=== PATIENT | female | born 1945 | race Caucasian/White ===

== ENCOUNTER → 2020-09-11 | Outpatient (CLI) | payer MEDICARE, OTHER | LOC: M.RAD 10:09 | PROVIDERS: ATTEND Internal Medicine | DX: M25.561 Pain in right knee (principal); M25.562 Pain in left knee; G89.29 Other chronic pain ==

== ENCOUNTER → 2020-10-13 | Outpatient (CLI) | payer MEDICARE, OTHER | LOC: M.CT 10:48 | PROVIDERS: ATTEND Internal Medicine | DX: I67.82 Cerebral ischemia (principal); R51.9 Headache, unspecified; W19.XXXA Unspecified fall, initial encounter ==

== ENCOUNTER 2020-11-20 11:44 | Emergency (ER) | payer MEDICARE, OTHER ==
[~2020-11-20] VITALS: Ht 149.9 cm; Wt 73.5 kg
[2020-11-20] MEDS ORDERED: VENLAFAXINE HCL25 MG (12:13)
[2020-11-20] MEDS ORDERED: TOPROL XL25 MG PO (12:13)
[2020-11-20 12:15] LABS: ABSOLUTE BASOPHILS 0.1 thou/uL (0.0-0.2); ABSOLUTE EOSINOPHILS 0.3 thou/uL (0.0-0.7); ABSOLUTE LYMPHOCYTES 1.5 thou/uL (0.8-5.3); ABSOLUTE MONOCYTES 0.5 thou/uL (0.0-1.2); ABSOLUTE NEUTROPHILS 3.6 thou/uL (1.6-8.1); EOSINOPHILS 4.7 %; HEMATOCRIT 37.7 % (37.0-47.0); HEMOGLOBIN 13.2 gm/dL (12.0-15.0); LYMPHOCYTES 25.3 %; MCH 33.1 pg (26.0-34.0); MCHC 35.1 g/dL (28.0-37.0); MCV 94.4 fL (80.0-100.0); MONOCYTES 8.7 %; MPV 9.5 fl. (7.2-11.1); NUCLEATED RBCS 0 /100WBC; PLATELET COUNT* 224 thou/uL (150-400); POLYS 60.3 %; RBC 3.99 mil/uL (4.20-5.00); RDW-CV 12.9 % (10.5-14.5)
[2020-11-20 12:25] LABS: CALCIUM 10.6 mg/dL (8.5-10.1); CREATININE 0.8 mg/dL (0.6-1.3)
[2020-11-20 12:28] LABS: ALBUMIN 3.7 g/dL (3.4-5.0); MAGNESIUM 1.9 mg/dL (1.8-2.4); TOTAL BILIRUBIN 0.4 mg/dL (<0.1-1.0); TOTAL PROTEIN 6.5 g/dL (6.4-8.2)
--- NOTE | 2020-11-20 14:15 | EKG ---
[place] [address] ELECTROCARDIOGRAM REPORT Name: GEORGE MENDIOLA Room: [facility]#: [id number] Admission: 11/20/20 Attend Phys: Discharge: Date of : 49 Date of Service: 11/20/20 1155 Report #: [id number] THIS REPORT FOR: //name// [facility] ED Test Date: 2020-11-20 Test Time: 11:55:06 Pat Name: GEORGE CANSECO Department: Room: Gender: F Recycling Sorter: LESLIE : 1945 Requested By: Ranulfo Lopez Order Number: [id number] MD: Tejas Balderrama Measurements Intervals Blackey Rate: 82 P: 39 LA: 175 QRS: 15 QRSD: 73 T: 17 QT: 367 QTc: 429 Interpretive Statements Sinus rhythm Consider anterior infarct No previous ECG available for comparison Electronically Signed On 11-20-2020 14:14:48 CDT by Tejas Balderrama [email or web address] <ELECTRONICALLY SIGNED> By: Tejas Balderrama MD, [facility] 11/20/20 1414 1155 1155 Tejas Balderrama MD, FACC /EPI
[2020-11-20] MEDS ORDERED: HYDROCODON-ACE1 EAC7 PO (15:36)
[2020-11-20 15:40] VITALS: BP 162/96
== END 2020-11-20 15:40 | disposition home or self-care (01) ==
LOC: M.ERS 11:44
PROVIDERS: Emergency Medicine Emergency Medical Services
DX: R07.89 Other chest pain (principal); R09.89 Other specified symptoms and signs involving the circulatory and respiratory systems; I10 Essential (primary) hypertension; Z88.2 Allergy status to sulfonamides; Z90.12 Acquired absence of left breast and nipple

== ENCOUNTER → 2020-12-22 | Outpatient (CLI) | payer MEDICARE, OTHER ==
[~2020-12-22] MED LIST: BENICAR40 MG PO; EFFEXOR XR75 MG PO; HYDROCHLOROTH12.5 M1 PO; HYDROCODON-ACE1 EAC7 PO; MELOXICAM15 MG PO; OMEPRAZOLE 20 M20 M1 PO; PRIVIGEN50 ML IV; SUPER THERAVIT1 EACH PO; TOPROL XL25 MG PO; TOVIAZ8 MG PO; VENLAFAXINE HCL25 MG; VITAMIN B12-FO1 EAC1 PO; Vitamin D3 PO; [UNRECOGNIZED DRUG - OTHER] PO
--- NOTE | 2020-12-22 16:34 | 2DMMODE ---
[place] [address] 2 D/M-MODE ECHOCARDIOGRAM Name: GEORGE MENDIOLA Room: [facility]#: [id number] Admission: 12/22/20 Attend Phys: Kushal Sanches, Discharge: Date of : 49 Date of Service: 12/22/20 1634 Report #: [id number] THIS REPORT FOR: cc: Rosa Rowland MD, Lin W. MD Blick, David R. MD [facility] ~ APPROVED REPORT Study performed: 12/22/2020 12:44:00 EXAM: Comprehensive 2D, Doppler, and color-flow Echocardiogram Patient Location: Out-Patient BSA: 1.70 HR: 76 bpm BP: 138/80 mmHg Other Information Study Quality: Good Indications Chest Pain 2D Dimensions IVSd: 10.00 (7-11mm) LVOT Diam: 20.12 (18-24mm) LVDd: 38.47 mm PWd: 9.24 (7-11mm) Ascending Ao: 24.70 (22-36mm) LVDs: 20.55 (25-40mm) Aortic Root: 28.78 mm Volumes Left Atrial Volume (Systole) LA ESV Index: 10.70 mL/m2 Aortic Valve AoV Peak Audie.: 1.05 m/s AO Peak Gr.: 4.37 mmHg LVOT Max P.25 mmHg AO Mean Gr.: 2.83 mmHg LVOT Mean P.60 mmHg LVOT Max V: 0.90 m/s AO V2 VTI: 22.96 cm LVOT Mean V: 0.58 m/s SHAKA (VTI): 2.97 cm2 LVOT V1 VTI: 21.44 cm Mitral Valve E/A Ratio: 0.70 [place] [address] 2 D/M-MODE ECHOCARDIOGRAM Name: [facility] Room: [facility]#: [id number] Admission: 12/22/20 Attend Phys: Kushal Sanches, Discharge: Date of : 49 Date of Service: 12/22/20 1634 Report #: [id number] MV Decel. Time: 308.72 ms MV E Max Audie.: 0.70 m/s MV PHT: 89.53 ms MVA (PHT): 2.46 cm2 TDI E/Lateral E': 7.78 E/Medial E': 8.75 Medial E' Audie.: 0.08 m/s Lateral E' Audie.: 0.09 m/s Pulmonary Valve PV Peak Audie.: 0.94 m/s PV Peak Gr.: 3.50 mmHg Tricuspid Valve RAP Estimate: 5.00 mmHg TR Peak Gr.: 19.22 mmHg RVSP: 24.22 mmHg PA Pressure: 24.22 mmHg Left Ventricle The left ventricle is normal size. There is normal LV segmental wall motion. There is normal left ventricular wall thickness. Left ventricular systolic function is normal. The left ventricular ejection fraction is within the normal range. LVEF is 55-60%. Grade I - abnormal relaxation pattern. Right Ventricle The right ventricle is normal size. The right ventricular systolic function is normal. Atria The left atrium size is normal. The right atrium size is normal. Aortic Valve Mild aortic valve sclerosis. No aortic regurgitation is present. There is no aortic valvular stenosis. Mitral Valve Mild mitral annular calcification. The mitral valve is normal in structure. There is no mitral valve regurgitation noted. No evidence of mitral valve stenosis. Tricuspid Valve The tricuspid valve is normal in structure. Mild [place] [address] 2 D/M-MODE ECHOCARDIOGRAM Name: GEORGE MENDIOLA Room: [facility]#: [id number] Admission: 12/22/20 Attend Phys: Kushal Sanches, Discharge: Date of : 49 Date of Service: 12/22/20 1634 Report #: [id number] Pulmonic Valve The pulmonary valve is normal in structure. There is no pulmonic valvular regurgitation. Great Vessels The aortic root is normal in size. IVC is normal in size and collapses >50% with inspiration. Pericardium There is no pericardial effusion. <Conclusion> LVEF is 55-60%. Mild aortic valve sclerosis. <ELECTRONICALLY SIGNED> By: Tejas Balderrama MD, FACC 12/22/20 1634 1634 1634 Tejas Balderrama MD, FACC /INF
--- NOTE | 2020-12-22 17:02 | CARDNUC ---
[place] [address] CARDIAC NUCLEAR IMAGING REPORT Name: GEORGE MENDIOLA Room: [facility]#: [id number] Admission: 12/22/20 Attend Phys: Kushal Sanches, Discharge: Date of : 49 Date of Service: 12/22/20 1702 Report #: [id number] THIS REPORT FOR: cc: Rosa Rowland MD, Lin W. MD Liston, Michael J. MD [facility] ~ APPROVED REPORT Study performed: 12/22/2020 15:29:45 Exam: Nuclear Stress Test Indication: Chest pain, Dyspnea, palpitations. Patient Location: Out-Patient Stress Tech: Karen Charles Stress Nurse: Kelli Chopra R.N. NM Tech:CATIE Funk Ht: 4 ft 11 in Wt: 164 lbs BSA: 1.70 m2 BMI: 33.12 Medical History Medical History: Chest pain, WOODS, palpitations, leg swelling, HTN, HX Breast cancer/mastectomy, falls, esophagitis reflux, hearing loss, obesity, head tightness, CAD, FHX CAD, slow/shuffled gait, past smoker, obesity. Medications: HCTZ, Metoprolol, Omesartan, ASA 81 Mg. Allergies: Oxybutynin, sulfa ABX. Cardiac Risk Factors: Age, Past Smoker, FHX of CAD, HTN, SOB, obesity, palpitations. Previous Cardiac Procedures: None Pretest Chest Pain Characteristics: No chest pain Exercise History: Indeterminate Physical Disabilities: Slow/shuffled gait, HX falls, leg swelling. Meds Held (24 hrs): None Stress Test Details Stress Test: Pharmacologic stress was paired with low level exercise. Reason for pharmacologic stress test: Slow/shuffled gait, HX falls, leg swelling.. HR Resting HR: 84 bpm Max Heart Rate (APMHR): 147 bpm Max HR Achieved: 136 bpm Target HR (85% APMHR): 124 [place] [address] CARDIAC NUCLEAR IMAGING REPORT Name: GEORGE MENDIOLA Room: [facility]#: [id number] Admission: 12/22/20 Attend Phys: Kushal Sanches, Discharge: Date of : 49 Date of Service: 12/22/20 1702 Report #: [id number] % of APMHR: 92 Recovery HR: 95 bpm BP Resting BP: 142/95 mmHg Max BP: 213/94 mmHg ECG Resting ECG: Sinus Rhythm Stress ECG: Sinus Tachycardia ST Change: None Arrhythmia: None Recovery ECG: Sinus Rhythm Recovery ST Change: None Recovery Arrhythmia: None Clinical Reason for Termination: Completed protocol Stress Symptoms: Dyspnea, leg heaviness/fatigue. Exercise duration: 4 min 00 sec Exercise capacity: 1.92 METs The patient tolerated walking Lexiscan protocol without significant cardiac symptoms. Nurse Comments A 75 year old female tolerated a modified walking Lexiscan Nuclear Stress Test. Treadmill slowed to 1.2 MPH for patient safety. Patient was stable and stated she felt good when escorted to Nuclear Medicine for imaging. Stress ECG Conclusion The baseline twelve-lead EKG shows sinus rhythm without significant ST segment or T wave abnormality. EKGs obtained during and post walking Lexiscan protocol show sinus rhythm and sinus tachycardia without significant ST segment or T wave changes when compared to baseline. There were no stress-induced arrhythmias. NM EXAM: Myocardial Perfusion REST/STRESS Imaging Protocol: Rest Tc-99m/Stress Tc-99m 1 day Resting Data Rest SPECT myocardial perfusion imaging was performed in supine position 30 minutes following the intravenous injection of 9.8 mCi of Tc-99m Sestamibi. Time of rest injection: 1400 Date: 12/22/2020 The images were gated to evaluate regional wall [place] [address] CARDIAC NUCLEAR IMAGING REPORT Name: GEORGE MENDIOLA Room: [facility]#: [id number] Admission: 12/22/20 Attend Phys: Kushal Sanches, Discharge: Date of : 49 Date of Service: 12/22/20 1702 Report #: [id number] left ventricular ejection fraction. Administration Route: IV Administration Site: Right AC Pharmacologic Stress Pharmacologic stress test was performed by injecting Regadenoson 0.4 mg IV push followed by the intravenous injection of 29.8 mCi of Tc-99m Sestamibi. Time of stress injection: 1540 Date: 12/22/2020 Administration Route: IV Administration Site: Right AC Gated Stress SPECT was performed 40 minutes after stress injection. The images were gated to evaluate regional wall motion and calculate left ventricular ejection fraction. Prone imaging was performed. Study Quality Study: Good Artifact: No artifact Study Data At rest, the left ventricular ejection fraction was 83%.. Post stress, the left ventricular ejection was 75%.. TID = 0.91. Perfusion Perfusion images obtained at rest and post walking Lexiscan stress show uniform uptake of the radioisotope throughout the myocardium. There were no defects to suggest infarct or ischemia. Wall Motion Normal left ventricular wall motion. Nuclear Conclusion ECG Findings: negative for ischemia Clinical Findings: negative for ischemia Nuclear Findings: negative for ischemia Exercise Capacity: not assessed Left Ventricular Function: normal Risk Study: low Myocardial perfusion images show no defect to suggest infarct or ischemia. Left ventricular systolic function appears normal on gated studies. This is a low risk study. <Conclusion> [place] [address] CARDIAC NUCLEAR IMAGING REPORT Name: GEORGE MENDIOLA Room: [facility] [place]#: [id number] Admission: 12/22/20 Attend Phys: Kushal Sanches, Discharge: Date of : 49 Date of Service: 12/22/20 1702 Report #: [id number] The baseline twelve-lead EKG shows sinus rhythm without significant ST segment or T wave abnormality. EKGs obtained during and post walking Lexiscan protocol show sinus rhythm and sinus tachycardia without significant ST segment or T wave changes when compared to baseline. There were no stress-induced arrhythmias. <ELECTRONICALLY SIGNED> By: Kushal Sanches MD, [facility] 12/22/201701 01 01 Kushal Sanches MD, FACC /INF
== END ==
LOC: M.CRD 12-10 15:34 → M.NUC 08:00 → M.CRD 08:00
PROVIDERS: ATTEND Internal Medicine Cardiovascular Disease
DX: I08.3 Combined rheumatic disorders of mitral, aortic and tricuspid valves (principal); I25.10 Atherosclerotic heart disease of native coronary artery without angina pectoris; R07.2 Precordial pain; I10 Essential (primary) hypertension; R00.2 Palpitations; R06.00 Dyspnea, unspecified; R00.0 Tachycardia, unspecified; R07.9 Chest pain, unspecified; R55 Syncope and collapse

== ENCOUNTER → 2021-03-19 | Outpatient (CLI) | payer MEDICARE, OTHER | LOC: M.LAB 12:30 | PROVIDERS: ATTEND Internal Medicine | DX: E83.52 Hypercalcemia (principal) ==

== ENCOUNTER → 2021-04-14 | Outpatient (CLI) | payer MEDICARE, OTHER | LOC: M.MRI 10:47 | PROVIDERS: ATTEND Internal Medicine | DX: I67.82 Cerebral ischemia (principal); R41.3 Other amnesia ==